=== PATIENT | female | born 1965 | race Caucasian/White ===

== ENCOUNTER → 2017-10-03 | Outpatient (CLI) | payer BC ==
--- NOTE | 2017-10-05 10:46 | MM ---
Reason for exam: screening (asymptomatic). Last mammogram was performed 1 year ago. Physical Findings: A clinical breast exam by your physician is recommended on an annual basis and results should be correlated with mammographic findings. MG Screening Mammo w CAD Bilateral CC and MLO view(s) were taken. Prior study comparison: October 02, 2016, right breast MG work up mamm w CAD RT. September 26, 2016, bilateral MG screening mammo w CAD. The breast tissue is heterogeneously dense. This may lower the sensitivity of mammography. Regional round and punctate calcifications in the right breast unchanged from 2015. No significant changes when compared with prior studies. ASSESSMENT: Negative, BI-RAD 1 RECOMMENDATION: Routine screening mammogram of both breasts in 1 year.
== END | disposition home or self-care (01) ==
LOC: RADMAMWWP 07:59
PROVIDERS: ATTEND Internal Medicine
DX: Z12.31 Encounter for screening mammogram for malignant neoplasm of breast (principal)

== ENCOUNTER → 2019-10-24 | Outpatient (CLI) | payer BC ==
--- NOTE | 2019-10-24 09:24 | MM ---
Reason for exam: screening (asymptomatic). Last mammogram was performed 1 year ago. Physical Findings: A clinical breast exam by your physician is recommended on an annual basis and results should be correlated with mammographic findings. MG Screening Mammo w CAD Bilateral CC and MLO view(s) were taken. Prior study comparison: October 22, 2018, bilateral MG screening mammo w CAD. October 03, 2017, bilateral MG screening mammo w CAD. The breast tissue is heterogeneously dense. This may lower the sensitivity of mammography. Finding: There are typically benign round, diffuse/scattered, regional, grouped calcifications in both breasts greater in the right breast. There is no discrete abnormality. ASSESSMENT: Benign, BI-RAD 2 RECOMMENDATION: Routine screening mammogram of both breasts in 1 year.
== END ==
LOC: RADMAMWWP 08:13
PROVIDERS: ATTEND Family Medicine
DX: Z12.31 Encounter for screening mammogram for malignant neoplasm of breast (principal)
CPT/HCPCS: 77067

== ENCOUNTER → 2020-12-31 | Outpatient (CLI) | payer BC ==
--- NOTE | 2021-01-03 10:36 | MM ---
Reason for exam: screening (asymptomatic). Last mammogram was performed 1 year and 2 months ago. Physical Findings: A clinical breast exam by your physician is recommended on an annual basis and results should be correlated with mammographic findings. MG Screening Mammo w CAD Bilateral CC and MLO view(s) were taken. Prior study comparison: October 24, 2019, bilateral MG screening mammo w CAD. October 22, 2018, bilateral MG screening mammo w CAD. The breast tissue is heterogeneously dense. This may lower the sensitivity of mammography. Stable scattered calcifications. No significant changes when compared with prior studies. ASSESSMENT: Benign, BI-RAD 2 RECOMMENDATION: Routine screening mammogram of both breasts in 1 year.
== END | disposition home or self-care (01) ==
LOC: RADMAMWWP 08:02
PROVIDERS: ATTEND Family Medicine
DX: Z12.31 Encounter for screening mammogram for malignant neoplasm of breast (principal)
CPT/HCPCS: 77067

== ENCOUNTER 2021-10-07 07:51 | Day surgery (SDC) | payer BC ==
[2021-10-05 17:50] VITALS: BMI 44.4
[~2021-10-07 07:51] MED LIST: LACTATED RINGERS 1,000 ML IV SCH
[2021-10-07 08:38] VITALS: RESP 16; TEMP 97
[2021-10-07] MEDS ORDERED: LIDOCAINE 1% INJ 10MG/ML (20 ML MDV) ONE (09:21)
[2021-10-07] MEDS ORDERED: PROPOFOL 10 MG/ML 20 ML VIAL IV ONE (09:21)
--- NOTE | 2021-10-07 09:42 | P.PCN ---
Date of Procedure: 10/07/21 Procedure(s) Performed: BRIEF HISTORY: Patient is a 56-year-old pleasant 8 female scheduled for an elective colonoscopy as a part of screening for colorectal neoplasia. PROCEDURE PERFORMED: Colonoscopy. PREOPERATIVE DIAGNOSIS: Screening for colon cancer. IV sedation per Anesthesia. PROCEDURE: After informed consent was obtained, the patient, was brought into the endoscopy unit. IV sedation was administered by Anesthesia under continuous monitoring. Digital rectal examination was normal. Initially the Olympus CF-160 flexible video colonoscope was then inserted in the rectum, gradually advanced into the cecum without any difficulty. Careful examination was performed as the scope was gradually being withdrawn. Ileocecal valve and the appendiceal orifice were visualized and appeared normal. Prep was excellent. Mucosa of the cecum, ascending colon, transverse colon, descending colon, sigmoid colon, and rectum appeared normal. Retroflexion was performed in the rectum and no lesions were seen. The patient tolerated the procedure well. IMPRESSION: Normal-appearing colon from rectum to cecum no evidence of colorectal neoplasia. RECOMMENDATIONS: Findings of this examination were discussed with the patient as well as her family. She was advised to have a repeat screening colonoscopy i n 10 years.
[2021-10-07 10:17] VITALS: BP 119/84; PULSE 55
== END 2021-10-07 10:45 | disposition home or self-care (01) ==
LOC: ORWHC2ENDO 07:51
PROVIDERS: ATTEND Internal Medicine Gastroenterology
DX: Z12.11 Encounter for screening for malignant neoplasm of colon (principal)
CPT/HCPCS: 45378; J2001; J2704

== ENCOUNTER → 2022-05-31 | Outpatient (CLI) | payer BC ==
--- NOTE | 2022-05-31 12:27 | BD ---
EXAMINATION TYPE: Axial Bone Density DATE OF EXAM: 05/31/2022 COMPARISON: NONE CLINICAL HISTORY: 56 years year old Female. ICD-10 CODE: M89.9 DISORDER OF BONE Height: 62.5 Weight: 240 FRAX RISK QUESTIONS: Alcohol (3 or more units per day): NO Family History (Parent hip fracture): NO Glucocorticoids (More than 3mos): NO History of Fracture in Adulthood: NO Secondary Osteoporosis: 1. Type 1 Diabetes: NO 2. Hyperthyroidism: NO 3. Menopause before 45: NO 4. Malnutrition: NO 5. Chronic liver disease: NO Rheumatoid Arthritis: NO Current Tobacco Use: NO RISK FACTORS HISTORY OF: Hip Fracture (Right/Left): NO Spine Fracture: NO History of Wrist Fracture: NO Surgery to Spine/Hip(right/left)/Wrist (right/left): NO Family History of Osteoporosis: NO Active: NO Diet low in dairy products/other sources of calcium: NO Postmenopausal woman: YES Take estrogen and/or progesterone medications: NO Lost more than 2 inches in height since high school: NO Frequent falls: NO Poor Health: NO Hyperparathyroidism: NO Adrenal Insufficiency: NO MEDICATIONS: Prednisone or other steroids: NO Thyroid Medications: YES Which medication: LEVOTHYROXINE How Lon YEARS Osteoporosis Medications: NO Additional Medications: ATENOLOL, PRAVASTATIN, LEVOTHYROXINE, FLUOXETINE, EXAM MEASUREMENTS: Bone mineral densitometry was performed using the Synerscope System. Bone mineral density as measured about the Lumbar spine is: ----- L1-L4(G/cm2): 1.278 T Score Values are as follows: ----- L1: 0.4 ----- L2: 0.5 ----- L3: 1.1 ----- L4: 1.1 ----- L1-L4: 0.8 BASELINE STUDY Bone mineral density about the R hip (g/cm2): 0.964 Bone mineral density about the L hip (g/cm2): 1.016 T Score values are as follows: -----R Neck: -0.5 -----L Neck: -0.2 -----R Total: 0.7 -----L Total: 1.4 BASELINE STUDY FRAX%s: The graph provided illustrates a 4.5% chance for a major osteoporotic fx and a 1.1% chance fo r the hips probability for fx in 10 years time. IMPRESSION: Normal (Values between +1 and -1 indicate normal bone mass). Consider repeating this study in 5 year s or sooner if there is some new clinical indication. NOTE: T-SCORE=SD OF THE YOUNG ADULT MEAN.
--- NOTE | 2022-06-01 08:50 | MM ---
Reason for Exam: Screening (asymptomatic). Last mammogram was performed 1 year(s) and 5 month(s) ago. Patient History: Menarche at age 14. First Full-Term at age 29. Hysterectomy at age 46. Risk Values: Corrina 5 year model risk: 1.3%. NCI Lifetime model risk: 9.3%. Prior Study Comparison: 10/22/2018 Bilateral Screening Mammogram, [facility]. 10/24/2019 Bilateral Screening Mammogram, [facility]. 12/31/2020 Bilateral Screening Mammogram, [facility]. Tissue Density: The breast tissue is heterogeneously dense. This may lower the sensitivity of mammography. Findings: Analyzed By CAD. There is no suspicious group of microcalcifications or new suspicious mass in either breast. Stable benign appearing calcifications. Overall Assessment: Benign, BI-RAD 2 Management: Screening Mammogram of both breasts in 1 year. A clinical breast exam by your physician is recommended on an annual basis and results should be correlated with mammographic findings. Electronically signed and approved by: Chema Iverson M.D. Radiologis
== END | disposition home or self-care (01) ==
LOC: RADMAMWWP 07:52
PROVIDERS: ATTEND Family Medicine
DX: Z12.31 Encounter for screening mammogram for malignant neoplasm of breast (principal); R92.1 Mammographic calcification found on diagnostic imaging of breast; Z78.0 Asymptomatic menopausal state
CPT/HCPCS: 77067; 77080

== ENCOUNTER → 2023-12-19 | Outpatient (CLI) | payer OTHER ==
--- NOTE | 2023-12-19 18:13 | CT ---
EXAMINATION TYPE: CT knee LT wo con CT DLP: 747.4 mGycm, Automated exposure control for dose reduction was used. DATE OF EXAM: 12/19/2023 4:47 PM COMPARISON: None CLINICAL INDICATION:Female, 58 years old with history of M25.562 LEFT KNEE W/O; pain in left knee; PH H, Pain in left knee since replacement in 2021 TECHNIQUE: Axial images were obtained of the CT knee LT wo con, Additional coronal and sagittal refor matted images and soft tissue and bone window were obtained for review. 3-D reconstruction was create d on a separate workstation. Contrast used: (None if empty) Oral contrast used: (None if empty) FINDINGS: Post total knee arthroplasty changes. Hardware appears in appropriate. There is a thin line ar line extending along the tibial component interface with the tibial plateau which is felt to be mo re prominent than expected. No evidence of fracture. There is a small joint effusion present. No evid ence of fracture. IMPRESSION: Post knee arthroplasty changes. Thin linear interface along the tibial component which is more promin ent than normally seen. If this concern for loosening consider arthrocentesis with fluid analysis cor onal particle disease and/or infection.
== END | disposition home or self-care (01) ==
LOC: RADCTMAIN 16:25
PROVIDERS: ATTEND Orthopaedic Surgery
DX: M25.562 Pain in left knee (principal); I10 Essential (primary) hypertension; Z96.652 Presence of left artificial knee joint

== ENCOUNTER → 2023-12-19 | Outpatient (CLI) | payer OTHER ==
[2023-12-20 02:31] LABS: Basophils # (A) 0.06 X 10*3/uL (0.00-0.10); Basophils % (A) 0.9 %; Eosinophils # (A) 0.35 X 10*3/uL (0.04-0.35); Eosinophils % (A) 5.3 %; HCT 39.9 % (37.2-46.3); HGB 12.8 g/dL (12.0-15.0); Lymphocytes # (A) 2.42 X 10*3/uL (0.90-5.00); Lymphocytes % (A) 36.8 %; MCH 28.7 pg (27.0-32.0); MCHC 32.1 g/dL (32.0-37.0); MCV 89.5 FL (80.0-97.0); Mean Platelet Volume 9.8 FL (9.5-12.2); Monocytes % (A) 6.1 %; NRBC Per 100 WBC 0 X 10*3/uL (0.00-0.01); Neutrophils # (A) 3.34 X 10*3/uL (1.80-7.70); Neutrophils % (A) 50.7 %; Platelet Count 314 X 10*3/uL (140-440); RBC 4.46 X 10*6/uL (4.10-5.20); RDW 13.4 % (11.5-14.5); WBC 6.58 X 10*3/uL (4.50-10.00)
[2023-12-20 03:53] LABS: Erythrocyte Sedimentation Rate 28 mm/Hr (0-30)
== END | disposition home or self-care (01) ==
LOC: LABWHC1 16:11
PROVIDERS: ATTEND Orthopaedic Surgery
DX: I10 Essential (primary) hypertension (principal); M25.562 Pain in left knee; Z96.652 Presence of left artificial knee joint
CPT/HCPCS: 36415; 85025; 85652; 86140

== ENCOUNTER → 2024-02-08 | Outpatient (CLI) | payer OTHER ==
--- NOTE | 2024-02-12 08:51 | MM ---
Reason for Exam: Screening (asymptomatic). Last mammogram was performed 1 year(s) and 8 month(s) ago. Patient History: Menarche at age 14. First Full-Term at age 29. Hysterectomy at age 46. Postmenopausal. Risk Values: Corrina 5 year model risk: 1.4%. NCI Lifetime model risk: 8.9%. Prior Study Comparison: 10/24/2019 Bilateral Screening Mammogram, [facility]. 12/31/2020 Bilateral Screening Mammogram, [facility]. 05/31/2022 Bilateral MG screening mammo w CAD, [facility]. Tissue Density: There are scattered areas of fibroglandular density. Findings: Analyzed By CAD. There is no suspicious group of microcalcifications or new suspicious mass. Overall Assessment: Negative, BI-RAD 1 Management: Screening Mammogram of both breasts in [address] [facility] will attempt to contact patient to return for supplemental views and ultrasound if indicated. Patient should continue monthly self-breast exams. A clinical breast exam by your physician is recommended on an annual basis. This exam should not preclude additional follow-up of suspicious palpable abnormalities. Note on Corrina scores and lifetime risk: 1. A Corrina score greater than 3% is considered moderate risk. If this is the case, consider specialist referral to assess eligibility for a risk reducing agent. 2. If overall lifetime risk for the development of breast cancer is 20% or higher, the patient may qualify for future screening with alternating mammogram and breast MRI. Electronically signed and approved by: Harris Salvador DO
== END | disposition home or self-care (01) ==
LOC: RADMAMWWP 07:48
PROVIDERS: ATTEND Family Medicine
DX: Z12.31 Encounter for screening mammogram for malignant neoplasm of breast (principal); Z78.0 Asymptomatic menopausal state
CPT/HCPCS: 77067